=== PATIENT | female | born 1990 | race Two or more races ===

== ENCOUNTER 2018-10-24 21:50 | Emergency (ER) | payer OTHER ==
[~2018-10-24] VITALS: Ht 157.5 cm; Wt 63.5 kg
[~2018-10-24 21:50] MED LIST: CELEBREX200MG PO; NORFLEX100MG PO
== END 2018-10-24 22:57 | disposition home or self-care (01) ==
LOC: ER 21:50
DX: K29.70 Gastritis, unspecified, without bleeding (principal)